=== PATIENT | female | born 1990 | race American Indian/Alaskan Native ===

== ENCOUNTER 2016-07-17 00:53 | Outpatient (CLI) | payer OTHER, MEDICAID ==
[2016-07-17] MEDS ORDERED: LACTATED RINGERS 500 ML IV ONE (03:01)
[2016-07-17 04:23] VITALS: BP 108/70
== END 2016-07-17 03:35 | disposition home or self-care (01) ==
LOC: EDSTATUS 02:31 → TRG 02:34
PROVIDERS: ATTEND Obstetrics & Gynecology
DX: O9A.212 Injury, poisoning and certain other consequences of external causes complicating pregnancy, second trimester (principal); Z3A.24 24 weeks gestation of pregnancy; X58.XXXA Exposure to other specified factors, initial encounter; Y93.89 Activity, other specified; Y92.89 Other specified places as the place of occurrence of the external cause; Y99.8 Other external cause status

== ENCOUNTER 2016-09-19 11:58 | Outpatient (CLI) | payer MEDICAID ==
[2016-09-19 12:12] VITALS: BP 114/67
[2016-09-19] MEDS ORDERED: LACTATED RINGERS 500 ML IV ONE (12:13)
[2016-09-19] MEDS ORDERED: BRETHINE SUB-Q SCH (13:00)
[2016-09-19 14:18] LABS: Bilirubin,Urine NEG (Negative); Blood,Urine NEG (Negative); Ketones,Urine NEG (Negative); Leukocyte Esterase,Urine NEG (Negative); Nitrite,Urine NEG (Negative); Protein,Urine <15 mg/dL mg/dL (Negative); RBC,Urine < 1.0 /HPF (0.0-6.0)
[2016-09-19 14:39] LABS: WBC,Urine < 1.0 /HPF (0.0-6.0)
== END 2016-09-19 15:21 | disposition home or self-care (01) ==
LOC: TRG 11:58
PROVIDERS: ATTEND Obstetrics & Gynecology
DX: O47.1 False labor at or after 37 completed weeks of gestation (principal); Z3A.37 37 weeks gestation of pregnancy
CPT/HCPCS: 59025; 81001; 96360; J7120

== ENCOUNTER 2016-09-29 23:28 | Inpatient (IN) | payer MEDICAID, OTHER ==
--- NOTE | 2016-09-29 23:09 | History and Physical Report ---
History of Present Illness Date of examination: 09/29/16 Date of admission: 09/30/16 Chief complaint: +HIV History of present illness: 26y/o @ 38+0 weeks presents for a primary delivery for +HIV status. Last viral load 8700. The patient has had insufficient care. She has undesired fertility. Patient has been reassessed/reevaluated/re-examined. H&P has been reviewed. No interval changes. 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, herpes, HIV Social history: single - Obstetrical History Expected Date of Delivery: 10/14/16 Actual Gestation: 38 Week(s) 0 Day(s) : 3 Para: 1 Hx # Term Pregnancies: 1 Number of Pregnancies: 0 Spontaneous Abortions: 1 Induced : 0 Number of Living Children: 1 Medications and Allergies Allergies Allergy/AdvReac Type Severity Reaction Status Date / Time No Known Allergies Allergy Verified 09/30/15 02:25 Home Medications Medication Instructions Recorded Confirmed Last Taken Type No Known Home Medications [No 09/19/16 09/30/16 Unknown History Reported Home Medications] Review of Systems All systems: negative Genitourinary: no leakage of fluid, no contractions - Physical Exam Breasts: Positive: deferred Cardiovascular: Regular rate Lungs: Positive: Clear to auscultation Abdomen: Positive: normal appearance - Obstetrical FHR: category 1 Uterine Contraction Monitor Mode: External Results Result Diagrams: 09/30/16 00:01 All other labs normal. Assessment and Plan - Patient Problems (1) HIV disease affecting Current Visit: Yes Status: Acute Qualifiers: Trimester: T Plan to address problem: scheduled for a primary delivery The patient has declined tubal ligation. (2) Insufficient care Current Visit: Yes Status: Acute Qualifiers: Trimester: T
[~2016-09-29 23:28] MED LIST: BICITRA PO ONE; PEPCID IV ONE; REGLAN IV ONE
[2016-09-29] MEDS ORDERED: LACTATED RINGERS 1,000 ML IV SCH (23:45)
[2016-09-29] MEDS ORDERED: ANCEF/STERILE WATER 2 GM/20 ML 2 GM/20 ML SYRINGE IV NR (23:45)
[2016-09-29] MEDS ORDERED: PITOCin/NS 20 UNIT/1000ML DRIP 20 UNITS/1,000 ML BAG IV SCH (23:45)
[2016-09-29] MEDS ORDERED: D5W IV ONE (23:56)
[2016-09-29] MEDS ORDERED: RETROVIR IV ONE (23:56)
[2016-09-30] MEDS ORDERED: PEPCID IV ONE ×2 (00:01→06:00)
[2016-09-30] MEDS ORDERED: BICITRA PO ONE ×2 (00:01→06:00)
[2016-09-30] MEDS ORDERED: REGLAN IV ONE ×2 (00:01→06:00)
[2016-09-30] MEDS ORDERED: ZOFRAN IV PRN (00:12)
[2016-09-30] MEDS: LACTATED RINGERS 1,000 ML IV SCH ×2 (00:43→07:14)
[2016-09-30] MEDS ORDERED: PITOCin/NS 20 UNIT/1000ML DRIP 20 UNITS/1,000 ML BAG IV SCH ×2 (01:00→10:00)
[2016-09-30] MEDS ORDERED: RETROVIR IV SCH (01:00)
[2016-09-30] MEDS ORDERED: D5W IV SCH (01:00)
[2016-09-30 01:33] LABS: Basophils % (Auto) 0.3 % (0.0-1.8); Eosinophils % (Auto) 6.1 % (0.0-4.3); Hematocrit 28.4 % (30.3-42.9); Mean Corpuscular HGB Conc 32 % (30-34); Mean Corpuscular Volume 72 fl (79-97); Platelet Count 256 K/mm3 (140-440); Red Blood Count 3.94 M/mm3 (3.65-5.03); Red Cell Distribution Width 15.3 % (13.2-15.2)
[2016-09-30 01:37] LABS: Mean Corpuscular Hemoglobin 23 pg (28-32)
[2016-09-30] MEDS: RETROVIR 400 MG in D5W 160 ML IV SCH ×2 (02:06→07:20)
--- NOTE | 2016-09-30 07:34 | Anesthesia Consultation ---
Anesthesia Consult and Med Hx Date of service: 09/30/16 - Airway Anesthetic Teeth Evaluation: Good ROM Head & Neck: Adequate Mental/Hyoid Distance: Adequate Mallampati Class: Class II Intubation Access Assessment: Probably Good - Pre-Operative Health Status ASA Pre-Surgery Classification: ASA3 Proposed Anesthetic Plan: Spinal - Pulmonary Hx Asthma: No COPD: No Hx Pneumonia: No - Cardiovascular System Hx Hypertension: No - Central Nervous System Hx Seizures: No Hx Psychiatric Problems: No - Endocrine Hx Renal Disease: No Hx End Stage Renal Disease: No Hx Hypothyroidism: No Hx Hyperthyroidism: No - Hematic Hx Anemia: No Hx Sickle Cell Disease: No - Other Systems Hx Alcohol Use: No - Additional Comments Anesthesia Medical History Comments: HIV positive, non complient
--- NOTE | 2016-09-30 07:35 | Anesthesia Day of Surgery ---
Anesthesia Day of Surgery - Day of Surgery Patient Examined: Yes Patient H&P Reviewed: Yes Patient is NPO: Yes
[2016-09-30] MEDS ORDERED: MORPHINE ONE (07:40)
[2016-09-30] MEDS ORDERED: ANCEF/STERILE WATER 2 GM/20 ML IV ONE (07:56)
[2016-09-30] MEDS ORDERED: WATER FOR IRRIG STERILE IR ONE (08:15)
[2016-09-30] MEDS ORDERED: NACL 0.9% IR ONE (08:15)
[2016-09-30] MEDS ORDERED: NACL 0.9% 1000 ML 1,000 ML ONE (08:22)
[2016-09-30] MEDS ORDERED: DILAUDID IV PRN (08:30)
[2016-09-30] MEDS ORDERED: NEO SYNEPHRINE/NS Syringe(OR USE) IV ONE (08:30)
[2016-09-30] MEDS ORDERED: NARCAN 0.4 MG/1 ML IV PRN ×2 (08:30→10:00)
[2016-09-30] MEDS ORDERED: TORADOL IV PRN ×2 (08:30→12:29)
[2016-09-30] MEDS ORDERED: BENADRYL IV PRN (08:30)
[2016-09-30] MEDS ORDERED: ZOFRAN ONE (08:36)
[2016-09-30] MEDS ORDERED: SODIUM CHLORIDE FLUSH SYRINGE 10 ML IV PRN ×2 (09:00→10:00)
--- NOTE | 2016-09-30 09:03 | Procedure Note ---
OB Delivery Note - Delivery Date of Delivery: 09/30/16 Surgeon: JOHNNA CHACON Estimated blood loss: other (800ml) - Section Preop diagnosis: other (positive HIV status) Postop diagnosis: same section procedure: section, primary low transverse Disposition: PACU Complications: none - A at 1 minute: 8 at 5 minutes: 9 Infant Gender: Female (weight 6 lbs. 13 oz.)
--- NOTE | 2016-09-30 09:07 | Operative Report ---
Operative Report Operative Report: Date of surgery: 09/30/2016 Preoperative diagnosis: at 38+0 weeks; positive HIV status with elevated viral load; sufficient care Postoperative diagnosis: Same as above Procedure: Primary low-transverse delivery Surgeon: Suzi Bhagat M.D. Anesthesia: Regional Estimated blood loss: 800 mL IV fluids: 1800ml Output: 50 mL Findings: Liveborn female infant with Apgars of 8 and 9 weight 6 lbs. 13 oz. Indications: 26-year-old 011 at 38+0 weeks who presents for primary delivery secondary to positive HIV status and elevated viral load. The patient has been noncompliant with meds during her . She was counseled for a primary delivery to decrease transmission to the infant. Procedure: The patient was taken to the operating room and given regional anesthesia without complication. She was prepped and draped in a normal sterile fashion. A Pfannenstiel skin incision was made down to layer the fascia which was nicked in the midline extended laterally with the Bovie cautery. The superior aspect of the rectus fascia was grasped with Lauren clamps x2 and the rectus muscles off sharply. This was done in inferior fashion as well. The rectus muscle midline and peritoneum entered bluntly. An Ryan retractor was then inserted. A bladder blade was placed. The vesicouterine peritoneum was then entered sharply with Metzenbaum scissors. A bladder flap was created digitally. A low transverse uterine incision was then made and extended digitally. There was clear fluid upon entry into the uterine cavity. The head was delivered through the incision with fundal pressure. The cord was clamped and cut x2 and infant was passed off to pediatrics. The placenta was then manually extracted. The uterus was then exteriorized and cleared of clots and debris. The uterine incision was then closed in a running locked fashion with 0 Vicryl additional imbricating stitch was applied for 2 layer closure. It was evidence of bleeding coming from the left lateral aspect of the uterine incision. Figure -of-eight stitches were placed in order to maintain hemostasis. The serosa was then reapproximated with 3-0 Vicryl. The posterior cul-de-sac was then copiously irrigated. The uterus was replaced back into the abdomen and pelvis were the gutters were then irrigated. The Ryan retractor was then removed. The peritoneum was then reapproximated with 3-0 Vicryl incorporating the rectus muscle. The fascia was then closed with 0 Vicryl in a running fashion. The skin was then reapproximated with 3-0 Monocryl on a Jose L needle subcuticular fashion. Steri-Strips to place across the incision and a Crede procedures performed at the end of the surgery. A pressure dressing was applied to the incision. The surgery productive of a liveborn female with Apgars of 8 and 9 weight 6 lbs. 13 oz. The patient was taken to the recovery room in stable condition. All sponge laps and needle counts correct x2.
[2016-09-30] MEDS ORDERED: D5LR 1,000 ML IV SCH (10:00)
[2016-09-30] MEDS ORDERED: MYLICON PO PRN (10:00)
[2016-09-30] MEDS ORDERED: LANSINOH TP PRN (10:00)
[2016-09-30] MEDS ORDERED: TYLENOL PO PRN (10:00)
[2016-09-30] MEDS ORDERED: MILK OF MAGNESIA PO PRN (10:00)
[2016-09-30] MEDS ORDERED: TUCKS PAD TP PRN (10:00)
[2016-09-30] MEDS ORDERED: DILAUDID IM PRN (12:31)
[2016-09-30 21:56] LABS: Hematocrit 22.7 % (30.3-42.9); Hemoglobin 7.3 gm/dl (10.1-14.3)
[2016-09-30] MEDS: PERCOCET 5/325 PO PRN (22:37)
[2016-10-01] MEDS: PERCOCET 5/325 PO PRN ×4 (05:31→20:18)
--- NOTE | 2016-10-01 08:38 | Progress Note ---
Assessment and Plan - Patient Problems (1) HIV disease affecting Current Visit: Yes Status: Acute Qualifiers: Trimester: T Plan to address problem: Patient will well postoperatively Routine postoperative care (2) Insufficient care Current Visit: Yes Status: Acute Qualifiers: Trimester: T Subjective - Subjective Date of service: 10/01/16 Interval history: The patient is without any significant complaints. She is tolerating clear diet without complication. The patient's Ramos has been removed and she has been able to void without complication. The patient desires to remain hospitalized as long as possible to remain with the infant. Patient reports: appetite normal, voiding normally, pain well controlled : doing well Objective - Vital Signs Latest vital signs: Vital Signs Temp Pulse Pulse Resp BP BP Pulse Ox 10/01/16 04:20 98.8 F 76 20 132/56 10/01/16 00:00 98.1 F 82 20 122/62 09/30/16 17:00 99.4 F 80 18 116/52 09/30/16 11:00 98.6 F 78 20 115/74 09/30/16 10:25 82 17 103/62 100 09/30/16 10:20 64 13 103/62 99 09/30/16 10:16 71 17 103/61 100 09/30/16 10:10 80 18 115/62 98 09/30/16 10:06 97.9 F 17 09/30/16 10:05 79 12 113/79 98 09/30/16 10:00 68 13 105/60 98 09/30/16 09:55 66 14 104/62 99 09/30/16 09:50 69 11 L 103/61 100 09/30/16 09:45 64 11 L 99/57 99 09/30/16 09:40 63 12 97/55 100 09/30/16 09:35 63 13 102/57 100 09/30/16 09:30 62 13 101/57 100 09/30/16 09:26 68 11 L 81/45 100 09/30/16 09:21 14 09/30/16 09:20 80 15 92/59 100 09/30/16 09:19 14 09/30/16 09:16 82 13 92/59 99 09/30/16 09:10 77 13 97/54 98 09/30/16 09:06 97/54 98 Intake and Output 09/30/16 10/01/16 10/01/16 22:59 06:59 14:59 Intake Total 730 600 Output Total 550 1500 Balance 180 -900 Intake: IV 250 D5lr 1,000 ml @ 125 mls/ 250 hr IV DIRECT [place] Rx#: [id number] Oral 480 240 Intake, Free Water 360 Output: Urine 550 1500 Indwelling Catheter 550 1500 Other: Total, Intake Amount 480 240 Total, Output Amount 250 600 - Exam Abdomen: Present: normal appearance, soft Uterus: Present: normal, firm Incision: Present: dressed - Labs Labs: Abnormal lab results 09/30/16 Range/Units 21:16 Hgb 7.3 L (10.1-14.3) gm/dl Hct 22.7 L (30.3-42.9) %
[2016-10-01] MEDS: MOTRIN PO PRN ×2 (16:38→23:31)
[2016-10-02] MEDS: MOTRIN PO PRN ×2 (05:52→16:00)
[2016-10-02] MEDS ORDERED: BOOSTRIX IM ONE (06:00)
--- NOTE | 2016-10-02 17:02 | Discharge Summary ---
Providers - Providers Date of Admission: 09/29/16 23:28 Date of discharge: 10/03/16 Attending physician: ARRON SOLOMON MD Primary care physician: ARRON SOLOMON MD Hospitalization Reason for admission: section, IUP at term Procedure: section Episiotomy: none Laceration: none Incision: normal, dry, intact Other procedures: none complications: none Discharge diagnosis: IUP at term delivered [place] baby: female Condition at discharge: Good Disposition: DISCHARGED TO HOME OR SELFCARE Plan - Discharge Medications Prescriptions: Docusate Sodium [Colace] 100 mg PO BID PRN #60 capsule PRN Reason: Constipation Ferrous Sulfate [Feosol 325 MG tab] 325 mg PO TID #90 tablet Ibuprofen [Motrin] 800 mg PO Q8HR PRN #60 tablet PRN Reason: Pain Oxycodone HCl/Acetaminophen [Percocet 7.5/325 mg] 1 each PO Q6HR PRN #45 tablet PRN Reason: Pain Triamcinolone 0.1% [Kenalog 0.1% CREAM] 1 applic TP TID #1 tube - Provider Discharge Summary Activity: routine, no sex for 6 weeks, no heavy lifting 4 weeks, no strenuous exercise Diet: routine Instructions: routine Additional instructions: [] Smoking cessation referral if applicable(refer to patient education folder for contact #) [] Refer to [facility] Booklet Call your doctor immediately for: * Fever > 100.5 * Heavy vaginal bleeding ( >1 pad per hour) * Severe persistent headache * Shortness of breath * Reddened, hot, painful area to leg or breast * Drainage or odor from incision. * Keep incision clean and dry at all times and follow doctor's instructions regarding bathing/showering - Follow up plan Follow up: ARRON SOLOMON MD [Primary Care Provider] - 14 Days MAHI BURCIAGA MD [Staff Physician] - 14 Days
[2016-10-02] MEDS: PERCOCET 5/325 PO PRN (20:20)
[2016-10-02] MEDS: FEOSOL PO SCH (22:13)
[2016-10-02] MEDS: KENALOG TP SCH (22:14)
[2016-10-03] MEDS: PERCOCET 5/325 PO PRN ×2 (05:46→12:14)
[2016-10-03 08:35] VITALS: BP 107/65
[2016-10-03] MEDS: FEOSOL PO SCH (10:23)
[2016-10-03] MEDS: KENALOG TP SCH (10:23)
[2016-10-03] MEDS: MOTRIN PO PRN (12:14)
== END 2016-10-03 18:05 | disposition home or self-care (01) | DRG 765 ==
LOC: LD 23:28 → OB 09-30 10:52
PROVIDERS: ADMIT Obstetrics & Gynecology; ATTEND Obstetrics & Gynecology
PROC: 10D00Z1 Extraction of Products of Conception, Low, Open Approach (ICD-10-PCS; principal; 2016-09-30)
DX: O98.713 Human immunodeficiency virus [HIV] disease complicating pregnancy, third trimester (principal); B20 Human immunodeficiency virus [HIV] disease; O09.33 Supervision of pregnancy with insufficient antenatal care, third trimester; Z3A.38 38 weeks gestation of pregnancy; Z37.0 Single live birth; Z91.19 Patient's noncompliance with other medical treatment and regimen
CPT/HCPCS: 36415; 85014; 85018; 85025; 86850; 86900; 86901; 88307; 90715; J0690; J1170; J1885; J2270; J2370; J2405; J2590; J2765; J3485; J7030; J7120; J7121

== ENCOUNTER 2018-08-02 20:27 | Inpatient (IN) | payer MEDICAID, OTHER ==
[2018-08-02] MEDS ORDERED: NACL 0.9% 1000 ML 1,000 ML IV ONE (20:49)
--- NOTE | 2018-08-02 20:50 | Emergency Department Report ---
ED Female HPI - General Chief complaint: Vaginal Bleeding Stated complaint: VAGINAL BLEEDING Time Seen by Provider: 08/02/18 20:46 Source: patient, EMS Mode of arrival: Stretcher Limitations: No Limitations - History of Present Illness Initial comments: Patient is a 28-year-old female that presents emergency room with complaints of vaginal bleeding that started 2 hours ago. Patient states she has been spotting since her surgical on July 14. Patient states that she is also having large clots and lower abdominal cramping. Patient states the cramping is a 5 out of 10 and nonradiating. Patient states she went to a local c lin to have it done. Patient states she is a . 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 Patient denies fever chills. Patient denies vaginal discharge. Patient states she is HIV positive and is off her antiretrovirals MD Complaint: vaginal bleeding, pelvic pain -: Sudden Severity: severe Severity scale (0 -10): 5 Quality: cramping Consistency: constant Improves with: none Worsens with: none Are you Now?: No Associated Symptoms: vaginal bleeding, abdominal pain. denies: vaginal discharge, nausea/vomiting, fever/chills, headaches, loss of appetite, dysuria, hematuria, rash, seizure, shortness of breath, syncope, weakness - Related Data Sexually active: Yes Previous Rx's Medication Instructions Recorded Last Taken Type Docusate Sodium [Colace] 100 mg PO BID PRN #60 capsule 10/01/16 Unknown Rx Ibuprofen [Motrin] 800 mg PO Q8HR PRN #60 tablet 10/01/16 Unknown Rx Oxycodone HCl/Acetaminophen 1 each PO Q6HR PRN #45 tablet 10/01/16 Unknown Rx [Percocet 7.5/325 mg] Ferrous Sulfate [Feosol 325 MG tab] 325 mg PO TID #90 tablet 10/02/16 Unknown Rx Triamcinolone 0.1% [Kenalog 0.1% 1 applic TP TID #1 tube 10/02/16 Unknown Rx CREAM] Allergies Allergy/AdvReac Type Severity Reaction Status Date / Time No Known Allergies Allergy Verified 09/30/15 02:25 ED Review of Systems ROS: Stated complaint: VAGINAL BLEEDING Other details as noted in HPI Constitutional: denies: chills, fever Eyes: denies: eye pain, eye discharge, vision change ENT: denies: ear pain, throat pain Respiratory: denies: cough, shortness of breath, wheezing Cardiovascular: denies: chest pain, palpitations Endocrine: no symptoms reported Gastrointestinal: abdominal pain. denies: nausea, diarrhea Genitourinary: abnormal menses. denies: urgency, dysuria, discharge Musculoskeletal: denies: back pain, joint swelling, arthralgia Skin: denies: rash, lesions Neurological: denies: headache, weakness, paresthesias Psychiatric: denies: anxiety, depression Hematological/Lymphatic: denies: easy bleeding, easy bruising ED Past Medical Hx - Past Medical History Previous Medical History?: Yes Hx Hypertension: No Hx Diabetes: No Hx Deep Vein Thrombosis: No Hx Renal Disease: No Hx Sickle Cell Disease: No Hx Seizures: No Hx Asthma: No Hx COPD: No Hx HIV: Yes Additional medical history: scoliosis - Surgical History Past Surgical History?: No - Family History Family history: no significant - Social History Smoking Status: Former Smoker Substance Use Type: None - Medications Home Medications: Home Medications Medication Instructions Recorded Confirmed Last Taken Type Docusate Sodium [Colace] 100 mg PO BID PRN #60 capsule 10/01/16 Unknown Rx Ibuprofen [Motrin] 800 mg PO Q8HR PRN #60 tablet 10/01/16 Unknown Rx Oxycodone HCl/Acetaminophen 1 each PO Q6HR PRN #45 tablet 10/01/16 Unknown Rx [Percocet 7.5/325 mg] Ferrous Sulfate [Feosol 325 MG tab] 325 mg PO TID #90 tablet 10/02/16 Unknown Rx Triamcinolone 0.1% [Kenalog 0.1% 1 applic TP TID #1 tube 10/02/16 Unknown Rx CREAM] ED Physical Exam - General Limitations: No Limitations General appearance: alert, in no apparent distress - Head Head exam: Present: atraumatic, normocephalic - Eye Eye exam: Present: normal appearance - ENT ENT exam: Present: mucous membranes moist - Neck Neck exam: Present: normal inspection - Respiratory Respiratory exam: Present: normal lung sounds bilaterally. Absent: respiratory distress - Cardiovascular Cardiovascular Exam: Present: regular rate, normal rhythm. Absent: systolic murmur, diastolic murmur, rubs, gallop - GI/Abdominal GI/Abdominal exam: Present: soft, tenderness (lower abdomen tenderness), normal bowel sounds - Rectal Rectal exam: Present: deferred - Extremities Exam Extremities exam: Present: normal inspection - Back Exam Back exam: Present: normal inspection - Neurological Exam Neurological exam: Present: alert, oriented X3 - Psychiatric Psychiatric exam: Present: normal affect, normal mood - Skin Skin exam: Present: warm, dry, intact, normal color. Absent: rash ED Course - Reevaluation(s) Reevaluation #1: Discussed all results with patient. Discussed plan of care and admission of patient. Patient agrees with plan of care and admission. 08/03/18 00:40 - Consultations Consultation #1: DRILLING CONTRACTOR consult. Dr. Lucille Woods return call. I discussed case with Dr. Woods. Dr. Woods states she will come see the patient. 08/03/18 00:30 ED Medical Decision Making - Lab Data Result diagrams: 08/02/18 20:57 08/02/18 20:57 - Radiology Data Radiology results: report reviewed PROCEDURE: US OB TRANSVAGINAL TECHNIQUE: Grayscale, color and Doppler sonographic images were obtained of the pelvis using transabdominal and transvaginal transducers. HISTORY: Vaginal bleeding, recent . Positive hCG. COMPARISONS: None available. FINDINGS: The uterus is distended with mixed attenuation material, uterine stripe is thickened and measures 2.6 cm. The uterus measures 8.5 x 6.4 x 7.9 cm. The right ovary measures 2.0 x 2.2 x 1.5 cm. A 2.6 cm solid (echogenic) mass is present within the right adnexa, appears separate from the ovary. Mild peripheral flow. The left ovary measures 4.0 x 3.8 x 2.9 cm. A 2.2 cm cystic christel is present. No significant free fluid in the cul-de-sac. IMPRESSION: 1. Distended, thickened endometrium with echogenic material and minimal peripheral flow. No in internal flow identified. Differential diagnosis includes blood p roducts/hematoma; retained product of conception not excluded. Continued clinical followup and B-hCG trending recommended. 2. 2.6 cm echogenic mass which is exophytic or separate from the right ovary. Differential diagnosis includes exophytic ovarian mass (possible hemorrhagic ovarian cyst) or solid neoplasm. In the setting of positive test and adnexal mass ectopic not entirely excluded, however there are no central cystic spaces or other features to suggest ectopic . As above, close clinical followup and B-hCG is recommended. If mass persists, MRI of the pelvis can further characterize. - Medical Decision Making Patient is a 28-year-old female that presents emergency room for severe vaginal bleeding and lower abdominal cramping. Patient is post surgical on 07/14/2018. Patient bleeding has slowed down and restarted today. Patient's blood through multiple pads. Patient had an ultrasound done here and ultrasound shows possible products of conception and enlarged uterine stripe. A PACU NURSE consult. DRILLING CONTRACTOR to see patient. - Differential Diagnosis vaginal bleeding. Retained products of conception. Critical Care Time: Yes Critical care attestation.: If time is entered above; I have spent that time in minutes in the direct care of this critically ill patient, excluding procedure time. Critical Care Time: 45 minutes ED Disposition Clinical Impression: Vaginal bleeding, Retained products of conception Abdominal pain Qualifiers: Abdominal location: lower abdomen, unspecified Qualified Code(s): R10.30 - Lower abdominal pain, unspecified Disposition: DC-09 OP ADMIT IP TO THIS HOSP Is pt being admited?: Yes Does the pt Need Aspirin: No Condition: Critical Time of Disposition: 01:55
[2018-08-02 21:20] LABS: Basophils % (Auto) 0.6 % (0.0-1.8); Eosinophils # (Auto) 0.2 K/mm3 (0.0-0.4); Eosinophils % (Auto) 4.7 % (0.0-4.3); Hematocrit 38.4 % (30.3-42.9); Hemoglobin 12.8 gm/dl (10.1-14.3); Lymphocytes # (Auto) 1.8 K/mm3 (1.2-5.4); Lymphocytes % (Auto) 39.5 % (13.4-35.0); Mean Corpuscular HGB Conc 33 % (30-34); Mean Corpuscular Volume 80 fl (79-97); Monocytes # (Auto) 0.4 K/mm3 (0.0-0.8); Monocytes % (Auto) 9.6 % (0.0-7.3); Red Blood Count 4.78 M/mm3 (3.65-5.03); Red Cell Distribution Width 15.1 % (13.2-15.2)
[2018-08-02 21:21] LABS: Platelet Count 137 K/mm3 (140-440)
[2018-08-02 21:45] LABS: BUN/Creatinine Ratio 9; Blood Urea Nitrogen 7 mg/dL (7-17); Calcium 9.3 mg/dL (8.4-10.2); Hemolysis Index 47
--- NOTE | 2018-08-02 23:46 | Ultrasound Report ---
PROCEDURE: US OB <= 14 WEEKS FETUS TECHNIQUE: Real-time transabdominal sonography of the uterus, placenta, amniotic fluid, adnexa, and fetus was performed with image documentation. Measurements were obtained to determine age/size. M-mode Doppler was used to document heartbeat. ADDITIONAL GESTATION: None. HISTORY: vaginal bleed.recent . pos hcg COMPARISONS: None . FINDINGS: Uterus measures 8.5 x 6.4 x 7.9 cm. Endometrium is thickened at 22.9 mm. There is no endometrial fluid. There is no gestational sac. The right ovary measures 2 x 2 x 1.5 cm. There is a 2.6 cm echogenic solid mass. This could be a derm oid. The left ovary measures 4 x 3.8 x 2.9 cm. There is a 2.2 cm cyst. There is normal blood flow without evidence of torsion. There is no free pelvic fluid. IMPRESSION: Endometrium is thickened at 22.9 mm. There is no endometrial fluid. There is no gestational sac. There is a 2.6 cm echogenic solid mass in the right ovary suggesting a dermoid. There is normal bilateral ovarian blood flow without evidence of torsion. There is no free pelvic fluid. This document is electronically signed by Martinez Simpson MD., August 02 2018 11:44:10 PM ET
--- NOTE | 2018-08-02 23:50 | Ultrasound Report ---
PROCEDURE: US OB TRANSVAGINAL TECHNIQUE: Grayscale, color and Doppler sonographic images were obtained of the pelvis using transab dominal and transvaginal transducers. HISTORY: Vaginal bleeding, recent . Positive hCG. COMPARISONS: None available. FINDINGS: The uterus is distended with mixed attenuation material, uterine stripe is thickened and measures 2.6 cm. The uterus measures 8.5 x 6.4 x 7.9 cm. The right ovary measures 2.0 x 2.2 x 1.5 cm. A 2.6 cm solid (echogenic) mass is present within the right adnexa, appears separate from the ovary. Mild peripheral flow. The left ovary measures 4.0 x 3.8 x 2.9 cm. A 2.2 cm cystic christel is present. No significant free fluid in the cul-de-sac. IMPRESSION: 1. Distended, thickened endometrium with echogenic material and minimal peripheral flow. 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 Differential diagnosis includes blood products/hematoma; retained product of conc eption not excluded. Continued clinical followup and B-hCG trending recommended. 2. 2.6 cm echogenic mass which is exophytic or separate from the right ovary. Differential diagnosis includes exophytic ovarian mass (possible hemorrhagic ovarian cyst) or solid neoplasm. In the settin g of positive test and adnexal mass ectopic not entirely excluded, however there are no central cystic spaces or other features to suggest ectopic . As above, close clinica l followup and B-hCG is recommended. If mass persists, MRI of the pelvis can further characterize. This document is electronically signed by Hamilton Otero DO., August 02 2018 11:48:41 PM ET
[2018-08-03] MEDS ORDERED: DILAUDID IV ONE (01:53)
--- NOTE | 2018-08-03 01:55 | History and Physical Report ---
History of Present Illness Date of examination: 08/03/18 Date of admission: 08/03/18 Chief complaint: vaginal bleeding History of present illness: 28 yo here for vaginal bleeding and cramping started yesterday used 2 -3 large pads and came to hospital. She has hx of bleeding with this and was noted to be 11 weeks when she had a 14 July. She is known HIV postive. 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 denies: smoking, alcohol abuse, prescription drug abuse - Obstetrical History : 3 Medications and Allergies Allergies Allergy/AdvReac Type Severity Reaction Status Date / Time No Known Allergies Allergy Verified 09/30/15 02:25 Home Medications Medication Instructions Recorded Confirmed Last Taken Type Docusate Sodium [Colace] 100 mg PO BID PRN #60 capsule 10/01/16 Unknown Rx Ibuprofen [Motrin] 800 mg PO Q8HR PRN #60 tablet 10/01/16 Unknown Rx Oxycodone HCl/Acetaminophen 1 each PO Q6HR PRN #45 tablet 10/01/16 Unknown Rx [Percocet 7.5/325 mg] Ferrous Sulfate [Feosol 325 MG tab] 325 mg PO TID #90 tablet 10/02/16 Unknown Rx Triamcinolone 0.1% [Kenalog 0.1% 1 applic TP TID #1 tube 10/02/16 Unknown Rx CREAM] Review of Systems All systems: negative Genitourinary: vaginal bleeding, pelvic pain - Physical Exam Breasts: Positive: deferred Cardiovascular: Regular rate, Normal S1 Lungs: Positive: Clear to auscultation, Normal air movement Abdomen: Positive: normal appearance, soft, normal bowel sounds. Negative: distention, tenderness, guarding Genitourinary (Female): Positive: normal external genitalia, normal perenium Vagina: Positive: normal moisture Uterus: Positive: normal size, normal contour Anus/Rectum: Positive: normal perianal skin Extremities: Positive: normal Deep Tendon Reflex Grade: Normal +2 Results Result Diagrams: 08/02/18 20:57 08/02/18 20:57 Abnormal lab results 08/02/18 08/02/18 08/02/18 Range/Units 20:57 20:57 20:57 MCH 27 L (28-32) pg Plt Count 137 L (140-440) K/mm3 Lymph % (Auto) 39.5 H (13.4-35.0) % Preston % (Auto) 9.6 H (0.0-7.3) % Eos % (Auto) 4.7 H (0.0-4.3) % Sodium 136 L (137-145) mmol/L HCG, Quant 252.1 H (0-4) mIU/mL All other labs normal. Assessment and Plan A/P Incomplete vaginal bleeding A+ no rhogam indicated quant 200s pitocin and methergine will watch pad count IVF and pain meds NPO
[2018-08-03] MEDS ORDERED: PHENERGAN PO PRN (01:59)
[2018-08-03] MEDS ORDERED: MINERAL OIL PO PRN (01:59)
[2018-08-03] MEDS ORDERED: ZOFRAN IV PRN (01:59)
[2018-08-03] MEDS ORDERED: PITOCin/NS 30 UNIT/500ML 30 UNITS/500 ML BAG IV SCH ×2 (02:00)
[2018-08-03] MEDS ORDERED: LACTATED RINGERS 1,000 ML IV SCH (02:00)
[2018-08-03] MEDS ORDERED: DILAUDID IM PRN (02:03)
--- NOTE | 2018-08-03 02:38 | Event Note ---
Date: 08/03/18 Patient had pelvic exam which showed scant bleeding one small clot in vagina. small nt uterus will continue with medication methergine for bleeding pad count re evaluate with CBC and BHCG in am
[2018-08-03 02:55] LABS: Hematocrit 32.9 % (30.3-42.9); Hemoglobin 10.7 gm/dl (10.1-14.3); Mean Corpuscular HGB Conc 33 % (30-34); Mean Corpuscular Volume 81 fl (79-97); Platelet Count 138 K/mm3 (140-440); Red Blood Count 4.05 M/mm3 (3.65-5.03); Red Cell Distribution Width 15.2 % (13.2-15.2)
[2018-08-03] MEDS: METHERGINE IM SCH ×3 (05:50→16:44)
[2018-08-03 08:49] LABS: Basophils % (Auto) 0.5 % (0.0-1.8); Eosinophils # (Auto) 0.1 K/mm3 (0.0-0.4); Eosinophils % (Auto) 4.1 % (0.0-4.3); Hematocrit 32.6 % (30.3-42.9); Hemoglobin 10.8 gm/dl (10.1-14.3); Lymphocytes # (Auto) 1.1 K/mm3 (1.2-5.4); Lymphocytes % (Auto) 39.6 % (13.4-35.0); Mean Corpuscular HGB Conc 33 % (30-34); Mean Corpuscular Volume 80 fl (79-97); Monocytes # (Auto) 0.3 K/mm3 (0.0-0.8); Monocytes % (Auto) 10.6 % (0.0-7.3); Platelet Count 131 K/mm3 (140-440); Red Blood Count 4.06 M/mm3 (3.65-5.03); Red Cell Distribution Width 15.3 % (13.2-15.2)
--- NOTE | 2018-08-03 08:54 | Progress Note ---
Assessment and Plan A: Vaginal bleeding after elective AB at outside institution HIV infection P: Continue IV Methergine and observation Consider discharge with close follow up Subjective - Subjective Date of service: 08/03/18 Principal diagnosis: Vaginal bleeding after Elective AB Interval history: Pt reports that her bleeding is much improved presently. Patient reports: appetite normal, voiding normally, ambulating normally Objective - Vital Signs Latest vital signs: Vital Signs Temp Pulse Resp BP BP Pulse Ox 08/03/18 08:20 65 20 104/55 97 08/03/18 05:49 97.2 F L 60 20 101/63 98 08/03/18 05:33 66 15 103/71 98 08/03/18 04:47 66 103/71 08/03/18 04:45 15 98 08/03/18 03:02 68 15 101/65 98 Intake and Output 08/02/18 08/03/18 08/03/18 22:59 06:59 14:59 Other: Weight 65.771 kg 145 kg Patient Weight 08/04/18 06:59 Weight 145 kg - Exam Breasts: Present: deferred Cardiovascular: Present: Regular rate Lungs: Present: Clear to auscultation Abdomen: Present: soft Extremities: Present: normal - Labs Labs: Abnormal lab results 08/02/18 08/02/18 08/02/18 Range/Units 20:57 20:57 20:57 WBC (4.5-11.0) K/mm3 MCH 27 L (28-32) pg RDW (13.2-15.2) % Plt Count 137 L (140-440) K/mm3 Lymph % (Auto) 39.5 H (13.4-35.0) % [place] % (Auto) 9.6 H (0.0-7.3) % Eos % (Auto) 4.7 H (0.0-4.3) % Lymph # (1.2-5.4) K/mm3 Seg Neutrophils # (1.8-7.7) K/mm3 Sodium 136 L (137-145) mmol/L HCG, Quant 252.1 H (0-4) mIU/mL 08/03/18 08/03/18 Range/Units 02:32 07:53 WBC 3.5 L 2.8 L (4.5-11.0) K/mm3 MCH 26 L 27 L (28-32) pg RDW 15.3 H (13.2-15.2) % Plt Count 138 L 131 L (140-440) K/mm3 Lymph % (Auto) 39.6 H (13.4-35.0) % [place] % (Auto) 10.6 H (0.0-7.3) % Eos % (Auto) (0.0-4.3) % Lymph # 1.1 L (1.2-5.4) K/mm3 Seg Neutrophils # 1.3 L (1.8-7.7) K/mm3 Sodium (137-145) mmol/L HCG, Quant (0-4) mIU/mL
[2018-08-03] MEDS ORDERED: TYLENOL PO ONE (09:07)
[2018-08-03] MEDS ORDERED: NORCO 5/325 PO PRN (09:11)
[2018-08-03 11:25] LABS: Bilirubin,Urine NEG (Negative); Blood,Urine LG (Negative); Color,Urine Yellow (Yellow); Mucus,Urine FEW /HPF
[2018-08-03 11:26] LABS: RBC,Urine > 182.0 /HPF (0.0-6.0)
--- NOTE | 2018-08-03 17:55 | Discharge Summary ---
Providers - Providers Date of Admission: 08/03/18 01:59 Date of discharge: 08/03/18 Attending physician: ARRON WOODS MD 08/03/18 00:38 Consult to Physician [CONS] Stat Comment: Dr. Torres spoke with Dr. Woods @ 0030 Consulting Provider: ARRON WOODS Physician Instructions: Reason For Exam: vaginal bleeding Primary care physician: ANNETTE BENJAMIN Hospitalization Reason for admission: vaginal bleeding Hospital course: Pt was admitted for vaginal bleeding after elective . She was given IV Methergine and her bleeding improved significantly. She then met discharge criteria. She will follow up in the office in 2-3 wks. Condition at discharge: Critical Disposition: - TO HOME OR SELFCARE - Discharge Diagnoses (1) HIV infection Status: Acute (2) Vaginal bleeding Status: Acute Plan - Discharge Medications Prescriptions: Clindamycin [Clindamycin CAP] 300 mg PO Q6H #28 capsule Fluconazole [Diflucan] 150 mg PO DAILY #2 tablet metroNIDAZOLE [Flagyl] 500 mg PO Q12HR #14 tab HYDROcodone/APAP 5-325 [[place] 5/325] 1 each PO Q6HR PRN #10 tablet PRN Reason: Pain - Provider Discharge Summary Activity: no sex for 6 weeks Diet: routine Instructions: routine Additional instructions: [] Smoking cessation referral if applicable(refer to patient education folder for contact #) [] Refer to [facility]'s [facility] Booklet Call your doctor immediately for: * Fever > 100.5 * Heavy vaginal bleeding ( >1 pad per hour) * Severe persistent headache * Shortness of breath * Reddened, hot, painful area to leg or breast * Drainage or odor from incision. * Keep incision clean and dry at all times and follow doctor's instructions regarding bathing/showering - Follow up plan Follow up: ANNETTE BENJAMIN MD [Primary Care Provider] - 7 Days MAHI BURCIAGA MD [Staff Physician] - 08/24/18 (please call to schedule follow up appt )
[2018-08-03 17:59] VITALS: BP 113/63
== END 2018-08-03 20:30 | disposition home or self-care (01) | DRG 779 ==
LOC: ED 20:27 → OB 08-03 01:59
PROVIDERS: ADMIT Obstetrics & Gynecology; ATTEND Obstetrics & Gynecology
DX: O07.1 Delayed or excessive hemorrhage following failed attempted termination of pregnancy (principal); Z21 Asymptomatic human immunodeficiency virus [HIV] infection status; Z87.891 Personal history of nicotine dependence
CPT/HCPCS: 36415; 76801; 76817; 80048; 81001; 84702; 85014; 85018; 85025; 85027; 86592; 86850; 86900; 86901; 96374; 99291; G0378; J1170; J2210; J7030; J7120